=== PATIENT | female | born 1955 | race Caucasian/White ===

== ENCOUNTER 2020-07-24 22:44 | Inpatient (IN) ==
[2020-07-25] MEDS ORDERED: Naloxone 0.4 MG/ML INJ IVP PRN (16:46)
[2020-07-25] MEDS ORDERED: Ondansetron 4 MG/2 ML VIAL IVP PRN (16:56)
[2020-07-25] MEDS ORDERED: D5% in Water 1,000 ML IVC PRN (17:03)
[2020-07-25] MEDS ORDERED: *HR* Dextrose 50 % in Water (Vial) 50 ML VIAL IVP PRN (17:03)
[2020-07-25] MEDS ORDERED: Dextrose Gel 15 GM/37.5 ML TUBE PO PRN ×2 (17:03)
[2020-07-25] MEDS ORDERED: Albuterol 2.5 MG/3 ML NEBULIZER IH PRN (17:05)
[2020-07-25 17:25] LABS: Basophils % 0.6 %; Eosinophils # 0.1 K/mcL (0.0-0.6); Eosinophils % 2.8 %; Hematocrit 32.4 % (35.3-44.9); Immature Granulocytes % 0.3 % (0-4); Lymphocytes # 0.6 K/mcL (0.6-4.6); Lymphocytes % 18.5 %; Mean Corpuscular Hemoglobin 30.1 pg (28.0-33.3); Mean Corpuscular Volume 88.5 fL (83.0-100.0); Mean Platelet Volume 10.6 fL (9.4-12.4); Monocytes # 0.4 K/mcL (0.0-1.3); Neutrophils # 2.1 K/mcL (1.6-8.9); Red Blood Count 3.66 M/mcL (3.82-4.97); Red Cell Distribution Width 15.8 % (11.5-14.5); Segmented Neutrophils % 66.8 %; White Blood Count 3.2 K/mcL (4.3-11.1)
[2020-07-25 17:27] LABS: Platelet Count 54 K/mcL (140-400)
[2020-07-25 17:36] LABS: INR 1.4; Prothrombin Time 15.7 Seconds (9.4-12.1)
[2020-07-25] MEDS: Nicotine 21 MG PATCH.TD24 TD SCH (17:41)
[2020-07-25 17:44] LABS: Alanine Aminotransferase 34 Units/L (7-52); Albumin 3.1 g/dL (3.5-5.7); Albumin/Globulin Ratio 1.1 (1.1-2.2); Alkaline Phosphatase 171 Units/L (34-104); Aspartate Amino Transferase 32 Units/L (13-39); BUN/Creatinine Ratio 19 (6-26); Bilirubin,Total 0.6 mg/dL (0.3-1.0); Blood Urea Nitrogen 11 mg/dL (8-23); Calcium 8.2 mg/dL (8.6-10.3); Carbon Dioxide 23 mEq/L (23-29); Chloride 106 mEq/L (98-107); Globulin 2.7 g/dL (2.4-3.5); Glucose 148 mg/dL (70-105); Osmolality,Calculated 284 (280-300); Potassium 3.7 mEq/L (3.5-5.1); Sodium 136 mEq/L (136-145); Total Protein 5.8 g/dL (6.4-8.9); eGFR For African Americans > 60 (> 60); eGFR For Non-African Americans > 60 (> 60)
[2020-07-25] MEDS: Gabapentin 400 MG CAPSULE PO SCH (21:56)
[2020-07-25] MEDS: Insulin LISPRO 300 UNITS/3 ML VIAL SQ SCH (22:45)
[2020-07-26] MEDS: carBAMazepine 200 MG TABLET PO SCH ×4 (00:14→23:58)
[2020-07-26 03:37] LABS: Basophils % 0.9 %; Eosinophils % 1.7 %; Immature Granulocytes % 0.3 % (0-4)
[2020-07-26 03:39] LABS: Eosinophils # 0.1 K/mcL (0.0-0.6); Hematocrit 32.6 % (35.3-44.9); Hemoglobin 10.8 g/dL (11.5-15.4); Immature Platelets 4.8 % (1.1-6.1); Lymphocytes # 0.5 K/mcL (0.6-4.6); Lymphocytes % 14.8 %; Mean Corpuscular HGB Conc 33.1 g/dL (31.6-35.5); Mean Corpuscular Hemoglobin 29.1 pg (28.0-33.3); Mean Corpuscular Volume 87.9 fL (83.0-100.0); Mean Platelet Volume 11.9 fL (9.4-12.4); Monocytes # 0.3 K/mcL (0.0-1.3); Monocytes % 9.6 %; Neutrophils # 2.5 K/mcL (1.6-8.9); Red Blood Count 3.71 M/mcL (3.82-4.97); Red Cell Distribution Width 15.7 % (11.5-14.5); Segmented Neutrophils % 72.7 %; White Blood Count 3.5 K/mcL (4.3-11.1)
[2020-07-26 03:40] LABS: Platelet Count 50 K/mcL (140-400)
[2020-07-26 04:00] LABS: BUN/Creatinine Ratio 20 (6-26); Blood Urea Nitrogen 11 mg/dL (8-23); Calcium 8.3 mg/dL (8.6-10.3); Carbon Dioxide 23 mEq/L (23-29); Chloride 103 mEq/L (98-107); Glucose 156 mg/dL (70-105); Osmolality,Calculated 279 (280-300); Potassium 3.5 mEq/L (3.5-5.1); Sodium 133 mEq/L (136-145); eGFR For African Americans > 60 (> 60); eGFR For Non-African Americans > 60 (> 60)
[2020-07-26] MEDS: Budesonide/Formoterol 80/4.5 1 PUFF INH IH SCH (08:31)
[2020-07-26] MEDS: Insulin LISPRO 300 UNITS/3 ML VIAL SQ SCH ×4 (09:22→21:54)
[2020-07-26] MEDS: Nicotine 21 MG PATCH.TD24 TD SCH (09:23)
[2020-07-26] MEDS: atenoloL 25 MG TABLET PO SCH (09:26)
[2020-07-26] MEDS: amLODIPine 5 MG TABLET PO SCH (09:27)
[2020-07-26] MEDS: hydroCHLOROthiazide 25 MG TABLET PO SCH (09:27)
[2020-07-26] MEDS: Gabapentin 400 MG CAPSULE PO SCH ×3 (09:28→21:54)
[2020-07-26] MEDS: Ascorbic Acid 500 MG TABLET PO SCH (09:28)
[2020-07-26 10:47] LABS: Adenovirus Not Detected (Not Detect); Bordetella Pertussis Not Detected (Not Detect); Chlamydophila pneumoniae Not Detected (Not Detect); Coronavirus 229E Not Detected (Not Detect); Coronavirus HKU1 Not Detected (Not Detect); Coronavirus NL63 Not Detected (Not Detect); Coronavirus OC43 Not Detected (Not Detect); Human Metapneumovirus Not Detected (Not Detect); Human Rhinovirus/Enterovirus Not Detected (Not Detect); Influenza A Subtype 2009 H1 Not Detected (Not Detect); Influenza B Not Detected (Not Detect); Mycoplasma pneumoniae Not Detected (Not Detect); Parainfluenza Virus 1 Not Detected (Not Detect); Parainfluenza Virus 2 Not Detected (Not Detect); Parainfluenza Virus 3 Not Detected (Not Detect); Parainfluenza Virus 4 Not Detected (Not Detect); Respiratory Syncytial Virus Not Detected (Not Detect); SARS-CoV-2 Not Detected (Not Detect)
[2020-07-27] MEDS: Budesonide/Formoterol 80/4.5 1 PUFF INH IH SCH (08:08)
[2020-07-27] MEDS: Gabapentin 400 MG CAPSULE PO SCH ×3 (08:53→19:59)
[2020-07-27] MEDS: amLODIPine 5 MG TABLET PO SCH (08:53)
[2020-07-27] MEDS: carBAMazepine 200 MG TABLET PO SCH ×3 (08:54→23:54)
[2020-07-27] MEDS: atenoloL 25 MG TABLET PO SCH (08:54)
[2020-07-27] MEDS: Ascorbic Acid 500 MG TABLET PO SCH (08:54)
[2020-07-27] MEDS: hydroCHLOROthiazide 25 MG TABLET PO SCH (08:55)
[2020-07-27] MEDS: Insulin LISPRO 300 UNITS/3 ML VIAL SQ SCH ×4 (08:55→20:08)
[2020-07-27] MEDS ORDERED: Dexamethasone 4 MG/ML VIAL ONE (09:36)
[2020-07-27] MEDS ORDERED: Ondansetron 4 MG/2 ML VIAL ONE (09:36)
[2020-07-27] MEDS ORDERED: *HR* FentaNYL (PF) 100 MCG/2 ML VIAL ONE ×2 (09:36→12:12)
[2020-07-27] MEDS ORDERED: Lidocaine -MPF 2% 2 ML VIAL ONE (09:36)
[2020-07-27] MEDS ORDERED: *HR* Midazolam HCl 2 MG/2 ML VIAL ONE (09:36)
[2020-07-27] MEDS ORDERED: *HR* Propofol 200 MG/20 ML VIAL IVP ONE (09:36)
[2020-07-27] MEDS ORDERED: Lidocaine -MPF 4% 5 ML AMPUL ONE ×2 (09:37→09:40)
[2020-07-27 10:26] LABS: Red Cell Distribution Width 15.6 % (11.5-14.5)
[2020-07-27 10:28] LABS: Eosinophils # 0.1 K/mcL (0.0-0.6); Eosinophils % 2.9 %; Hematocrit 32.7 % (35.3-44.9); Hemoglobin 10.9 g/dL (11.5-15.4); Immature Granulocytes % 0.3 % (0-4); Immature Platelets 5.3 % (1.1-6.1); Lymphocytes # 0.7 K/mcL (0.6-4.6); Lymphocytes % 23.5 %; Mean Corpuscular HGB Conc 33.3 g/dL (31.6-35.5); Mean Corpuscular Hemoglobin 28.5 pg (28.0-33.3); Mean Corpuscular Volume 85.4 fL (83.0-100.0); Mean Platelet Volume 11.6 fL (9.4-12.4); Monocytes # 0.4 K/mcL (0.0-1.3); Monocytes % 13.8 %; Neutrophils # 1.8 K/mcL (1.6-8.9); Red Blood Count 3.83 M/mcL (3.82-4.97); Segmented Neutrophils % 58.5 %; White Blood Count 3.1 K/mcL (4.3-11.1)
[2020-07-27 10:29] LABS: Platelet Count 57 K/mcL (140-400)
[2020-07-27 10:39] LABS: BUN/Creatinine Ratio 19 (6-26); Blood Urea Nitrogen 13 mg/dL (8-23); Calcium 8.3 mg/dL (8.6-10.3); Carbon Dioxide 24 mEq/L (23-29); Chloride 99 mEq/L (98-107); Glucose 153 mg/dL (70-105); Osmolality,Calculated 275 (280-300); Potassium 3.4 mEq/L (3.5-5.1); Sodium 131 mEq/L (136-145); eGFR For African Americans > 60 (> 60); eGFR For Non-African Americans > 60 (> 60)
[2020-07-27] MEDS ORDERED: *HR* HYDROmorphone PF 0.5 MG/0.5 ML SYRINGE IVP PRN (11:01)
[2020-07-27] MEDS ORDERED: *HR* FentaNYL (PF) 100 MCG/2 ML VIAL IVP PRN (11:01)
[2020-07-27] MEDS ORDERED: EPHEDrine 50 MG/ML VIAL ONE (12:59)
[2020-07-27 14:19] LABS: Basophils % 0.7 %; Hemoglobin 10.6 g/dL (11.5-15.4); Red Cell Distribution Width 15.5 % (11.5-14.5)
[2020-07-27 14:21] LABS: Eosinophils # 0.1 K/mcL (0.0-0.6); Eosinophils % 2.2 %; Hematocrit 32.1 % (35.3-44.9); Immature Granulocytes % 0.5 % (0-4); Immature Platelets 5.4 % (1.1-6.1); Lymphocytes # 0.5 K/mcL (0.6-4.6); Mean Corpuscular Hemoglobin 28.5 pg (28.0-33.3); Mean Corpuscular Volume 86.3 fL (83.0-100.0); Mean Platelet Volume 11.3 fL (9.4-12.4); Monocytes # 0.3 K/mcL (0.0-1.3); Monocytes % 6.8 %; Neutrophils # 3.2 K/mcL (1.6-8.9); Red Blood Count 3.72 M/mcL (3.82-4.97); Segmented Neutrophils % 76.8 %; White Blood Count 4.1 K/mcL (4.3-11.1)
[2020-07-27 14:28] LABS: Platelet Count 66 K/mcL (140-400)
[2020-07-27] MEDS: Nicotine 21 MG PATCH.TD24 TD SCH (14:50)
[2020-07-27] MEDS: predniSONE 20 MG TABLET PO SCH (17:55)
[2020-07-27] MEDS: CeFAZolin 2 GM/120 ML BAG IVPB SCH (20:00)
[2020-07-27] MEDS: Ipratropium/Albuterol Neb 3 ML IH SCH (20:37)
[2020-07-28] MEDS: Ipratropium/Albuterol Neb 3 ML IH SCH ×5 (00:18→15:35)
[2020-07-28 01:37] LABS: Eosinophils % 0.2 %; Hemoglobin 9.6 g/dL (11.5-15.4); Red Cell Distribution Width 15.2 % (11.5-14.5)
[2020-07-28 01:39] LABS: Basophils % 0.2 %; Immature Granulocytes % 0.7 % (0-4); Immature Platelets 6.3 % (1.1-6.1); Lymphocytes # 0.5 K/mcL (0.6-4.6); Mean Corpuscular HGB Conc 33.1 g/dL (31.6-35.5); Mean Corpuscular Hemoglobin 28.7 pg (28.0-33.3); Mean Corpuscular Volume 86.8 fL (83.0-100.0); Mean Platelet Volume 11.4 fL (9.4-12.4); Monocytes # 0.4 K/mcL (0.0-1.3); Monocytes % 8.6 %; Neutrophils # 3.2 K/mcL (1.6-8.9); Nucleated Red Blood Cells 0.5 /100 WBC (0); Red Blood Count 3.34 M/mcL (3.82-4.97); Segmented Neutrophils % 78.3 %; White Blood Count 4.1 K/mcL (4.3-11.1)
[2020-07-28 01:43] LABS: Platelet Count 59 K/mcL (140-400)
[2020-07-28 02:00] LABS: BUN/Creatinine Ratio 20 (6-26); Blood Urea Nitrogen 15 mg/dL (8-23); Calcium 7.8 mg/dL (8.6-10.3); Carbon Dioxide 21 mEq/L (23-29); Chloride 97 mEq/L (98-107); Glucose 255 mg/dL (70-105); Osmolality,Calculated 276 (280-300); Potassium 3.4 mEq/L (3.5-5.1); Sodium 128 mEq/L (136-145); eGFR For African Americans > 60 (> 60); eGFR For Non-African Americans > 60 (> 60)
[2020-07-28] MEDS: CeFAZolin 2 GM/120 ML BAG IVPB SCH (04:18)
[2020-07-28] MEDS: Budesonide/Formoterol 80/4.5 1 PUFF INH IH SCH (07:20)
[2020-07-28] MEDS: Nicotine 21 MG PATCH.TD24 TD SCH (08:05)
[2020-07-28] MEDS: atenoloL 25 MG TABLET PO SCH (08:07)
[2020-07-28] MEDS: Gabapentin 400 MG CAPSULE PO SCH ×2 (08:07→12:12)
[2020-07-28] MEDS: Ascorbic Acid 500 MG TABLET PO SCH (08:08)
[2020-07-28] MEDS: amLODIPine 5 MG TABLET PO SCH (08:08)
[2020-07-28] MEDS: predniSONE 20 MG TABLET PO SCH (08:08)
[2020-07-28] MEDS: hydroCHLOROthiazide 25 MG TABLET PO SCH (08:09)
[2020-07-28] MEDS: carBAMazepine 200 MG TABLET PO SCH ×2 (08:15→16:21)
[2020-07-28] MEDS: Insulin LISPRO 300 UNITS/3 ML VIAL SQ SCH ×2 (08:16→12:09)
[2020-07-28 11:03] VITALS: BP 132/65
== END 2020-07-28 18:01 | disposition home or self-care (01) | DRG 308 ==
LOC: 3NENU → SUATTDRO 07-25 14:39
PROVIDERS: ADMIT Family Medicine; ATTEND Family Medicine